=== PATIENT | female | born 1935 | race Two or more races ===

== ENCOUNTER 2019-07-17 18:51 | Emergency (ER) | payer OTHER ==
[~2019-07-17] VITALS: Ht 157.5 cm; Wt 68.0 kg
[2019-07-17 19:04] VITALS: BP 155/48
[2019-07-17] MEDS ORDERED: KETOROLAC 30 MG/1 ML ONE (19:50)
--- NOTE | 2019-07-17 19:59 | NUR ---
PT MEDICATED PER MAR
[2019-07-17] MEDS ORDERED: KETOROLAC 30 MG/1 ML IM ONE (20:00)
[2019-07-17] MEDS ORDERED: HYDROcodone/APAP 5/325 TABLET ONE (21:00)
[2019-07-17] MEDS ORDERED: HYDROcodone/APAP 5/325 TABLET PO ONE (21:00)
--- NOTE | 2019-07-17 21:51 | NUR ---
REPORT RECEIVED FROM JUAN REYES RN.
== END 2019-07-17 22:59 | disposition home or self-care (01) ==
LOC: ED 20:12
DX: M25.552 Pain in left hip (principal); M79.652 Pain in left thigh; M25.562 Pain in left knee; M54.42 Lumbago with sciatica, left side
CPT/HCPCS: 73502; 73564; 93971; 96372; 99284; J1885